=== PATIENT | male | born 1965 | race Caucasian/White ===

== ENCOUNTER 2017-03-13 16:06 | Emergency (ER) | payer OTHER ==
--- NOTE | 2017-03-13 16:55 | EDPHY ---
H & P Time Seen by Provider: 03/13/17 16:29 HPI/ROS: CHIEF COMPLAINT: Difficulty with word finding, confusion HISTORY OF PRESENT ILLNESS: 51-year-old male presents after an episode of difficulty with word finding and confusion. He was giving a presentation 2 days ago when he suddenly lost track of his thoughts. He needed to use his notes more than usual. This was very unusual for him. Throughout the remainder of the day, he had intermittent difficulty with word finding and needed to pause for a second before he was able to remember the name of an object. He does not think that anyone else noticed this difficulty, including his , as the hesitation was very brief. Since then he has felt a little foggy, but has had no further difficulty with word finding or with confusion. No weakness or numbness. History of similar symptoms in 2010. He saw Dr. Alfonso Moreland at that time and had a normal EEG, normal MRI and normal sleep study. No headache or neck pain. REVIEW OF SYSTEMS: Constitutional: No fever, no chills Eyes: No visual changes ENT: No sore throat Respiratory: No cough, no shortness of breath Cardiac: No chest pain Gastrointestinal: No nausea, no vomiting, no abdominal pain Genitourinary: No hematuria, no dysuria Musculoskeletal: No leg pain or swelling Skin: No rash Neurological: No headache, no numbness, no weakness Psychiatric: No depression Past Medical/Surgical History: Denies Social History: Smoking Status: Never smoked Physical Exam: General Appearance: Alert, pleasant Eyes: Pupils equal and round, no conjunctival pallor or injection ENT, Mouth: Mucous membranes moist Neck: Normal inspection Respiratory: Lungs are clear to auscultation Cardiovascular: Regular rate and rhythm Gastrointestinal: Abdomen is soft and nontender Neurological: Alert, oriented x3, cranial nerves II through XII intact, motor 5 /5, sensory intact to light touch, normal gait. Skin: Warm and dry, no rash Extremities: Nontender, no pedal edema Psychiatric: Mood and affect normal Constitutional: Initial Vital Signs Temperature (C) 36.1 C 03/13/17 16:14 Heart Rate 82 03/13/17 16:14 Respiratory Rate 17 03/13/17 16:14 Blood Pressure 134/85 H 03/13/17 16:14 O2 Sat (%) 98 03/13/17 16:14 O2 Delivery Mode Room Air Allergies/Adverse Reactions: No Known Allergies Allergy (Unverified 03/13/17 16:12) Home Medications: Medication Instructions Recorded Claritin 03/13/17 Protonix 03/13/17 Medical Decision Making - Diagnostics Imaging Results: CT scan of the brain read by the radiologist is normal. Imaging: Discussed imaging studies w/ brake linings coater Radiologist ED Course/Re-evaluation: Patient presents after an episode of mental fogginess. His neurologic exam is intact. Given he has had previous similar symptoms with a completely negative workup, I doubt that this represents a TIA or partial seizure. CT scan is normal, as is the remainder of the evaluation. He will follow up with Dr. Moreland in the office. If he has another episode, he will either follow up with his primary care physician or return to the emergency department for further evaluation. Differential Diagnosis: Altered mental status including but not limited to hypoglycemia, infectious process, electrolyte abnormality, head injury and intoxicants. - Data Points Laboratory Results: Laboratory Results 03/13/17 16:37 03/13/17 16:37 Departure - Departure Disposition: Home, Routine, Self-Care Clinical Impression: Confusion Condition: Good Instructions: Altered Mental Status (ED) Referrals: Terry James DO [Primary Care Provider] - As per Instructions Alfonso Moreland MD [Medical Doctor] - 5-7 days, call for appt.
[2017-03-13 16:58] LABS: % IMMATURE GRANULYOCYTES 0.5 % (0.0-1.1); ABSOLUTE IMMATURE GRANULOCYTES 0.04 10^3/uL (0.00-0.10); ADD DIFF? NO; ADD MORPH? NO; ADD SCAN? NO; ATYPICAL LYMPHOCYTE FLAG 30 (0-99); FRAGMENT RBC FLAG 0 (0-99); HEMATOCRIT 44.6 % (40.0-51.0); HEMOGLOBIN 15.3 g/dL (13.7-17.5); LEFT SHIFT FLG 10 (0-99); LIPEMIA HEMOLYSIS FLAG 90 (0-99); MEAN CELL HEMOGLOBIN 30.1 pg (27.9-34.1); MEAN CELL HEMOGLOBIN CONCENTR. 34.3 g/dL (32.4-36.7); MEAN CELL VOLUME 87.8 fL (81.5-99.8); MEAN PLATELET VOLUME 10.2 fL (8.7-11.7); PLATELET CLUMPS FLAG 10 (0-99); PLATELET COUNT 253 10^3/uL (150-400); RED BLOOD CELL COUNT 5.08 10^6/uL (4.40-6.38)
[2017-03-13 17:15] LABS: ANION GAP 10 mEq/L (8-16); CARBON DIOXIDE 25 mEq/l (22-31); CHLORIDE 105 mEq/L (97-110); GLOMERULAR FILTRATION RATE > 60; GLUCOSE 90 mg/dL (70-100); POTASSIUM 4.1 mEq/L (3.5-5.2); SODIUM 140 mEq/L (134-144)
[2017-03-13 18:03] VITALS: BP 122/83; PULSE 66; RESP 14; TEMP 99.3; O2SAT 99
== END 2017-03-13 18:22 | disposition home or self-care (01) ==
DX: R41.0 Disorientation, unspecified (principal)